=== PATIENT | female | born 1970 | race Caucasian/White ===

== ENCOUNTER 2019-01-17 12:58 | Emergency (ER) | payer MEDICAID ==
[~2019-01-17] VITALS: Ht 162.6 cm; Wt 74.0 kg
[2019-01-17 13:21] VITALS: BP 142/87
--- NOTE | 2019-01-17 13:34 | NUR ---
PATIENT PRESENTS TO ED TODAY FOR EPIGASTRIC PAIN WITH N/V X 2 MONTHS, PROGRESSIVELY WORSE. DENIES RECENT SURGERIES/TRAVEL. MD AT BEDSIDE, AWAITING MD ORDERS, CALL LIGHT WITHIN REACH. Addendum: 01/17/19 at 1342 by NINA PATIENT ALSO REPORTS DIARRHEA, ISO PRECAUTIONS IN PLACE PER PROTOCOL. AWAITING LABS/US.
[2019-01-17] MEDS ORDERED: MAALOX/HYOSCYAMINE/LIDOCAINE 45 ML BTL ONE (13:55)
[2019-01-17] MEDS ORDERED: FAMOTIDINE 20 MG TABLET ONE (13:55)
[2019-01-17 13:58] LABS: BASOPHILS # (AUTO) 0.01 x10^3/uL (0-0.1); BASOPHILS % (AUTO) 0 % (0-1); EOSINOPHILS # (AUTO) 0.16 x10^3/uL (0-0.4); EOSINOPHILS % (AUTO) 2 % (1-7); LYMPHOCYTES # (AUTO) 1.48 x10^3/uL (1-3.4); LYMPHOCYTES % (AUTO) 18 % (22-44); MD NO; MEAN CORPUSCULAR HEMOGLOBIN 30.3 pg (27.0-34.8); MEAN CORPUSCULAR HGB CONC 32.8 g/dL (32.4-35.8); MEAN CORPUSCULAR VOLUME 92.3 fL (80-100); MEAN PLATELET VOLUME 8.4 fL (7.4-10.4); MONOCYTES % (AUTO) 6 % (2-9); NEUTROPHILS # (AUTO) 6.02 x10^3/uL (1.8-6.8); NEUTROPHILS % (AUTO) 74 % (42-75); PLATELET COUNT 287 x10^3/uL (130-400); RED BLOOD COUNT 4.99 x10^6/uL (3.82-5.3); RED CELL DISTRIBUTION WIDTH 14.1 % (9.6-15.2)
[2019-01-17] MEDS ORDERED: MAALOX/HYOSCYAMINE/LIDOCAINE 45 ML BTL PO ONE (14:00)
[2019-01-17] MEDS ORDERED: FAMOTIDINE 20 MG TABLET PO ONE (14:00)
--- NOTE | 2019-01-17 14:03 | NUR ---
US AT BEDSIDE.
[2019-01-17 14:08] LABS: ALANINE AMINOTRANSFERASE 97 U/L (12-78); ANION GAP 8 mmol/L (5-15); CALCIUM 8.9 mg/dL (8.5-10.1); CHLORIDE 110 mmol/L (98-107); CREATININE 0.59 mg/dL (0.55-1.02)
[2019-01-17 14:11] LABS: ALKALINE PHOSPHATASE 85 U/L (45-117); BILIRUBIN,TOTAL 0.4 mg/dL (0.2-1.0); TOTAL PROTEIN 7.8 g/dL (6.4-8.2)
--- NOTE | 2019-01-17 14:51 | NUR ---
RESULTS BACK, CHART UP FOR RECHECK. PATIENT SITTING IN [facility]. AWAITING FURTHER ORDERS.
== END 2019-01-17 15:16 | disposition home or self-care (01) ==
LOC: ED 15:10
DX: K29.00 Acute gastritis without bleeding (principal)
CPT/HCPCS: 36415; 76700; 80053; 83690; 85025; 99284